=== PATIENT | female | born 1960 | race African-American/Black ===

== ENCOUNTER 2017-06-04 03:20 | Inpatient (IN) | payer MEDICAID ==
[~2017-06-04 03:20] MED LIST: COREG 3.1253.125 MG NG; PROAIR HFA8.5 GM INH
[2017-06-04 03:50] LABS: BASOPHILS 0.2 % (0-2); EOSINOPHILS 1.5 % (0-7); HEMATOCRIT 39.8 % (36.0-48.0); HEMOGLOBIN 13.7 g/dL (12-16); IMMATURE GRANULOCYTES 0.4 % (0-5); LYMPHOCYTES 54.9 % (15-50); MCH 29.4 pg (26.0-34.0); MCHC 34.4 g/dL (31.0-37.0); MCV 85.4 fL (80.0-100.0); MEAN PLATELET VOLUME 10.1 fL (7.4-10.4); MONOCYTES 7.1 % (2-11); NEUTROPHILS 35.9 % (40-80); PLATELET COUNT 186 10x3/uL (130-400); RBC 4.66 10x6/uL (4.00-5.40); RDW 14.2 % (11.5-14.5); WBC 5.5 10x3/uL (4.8-10.8)
[2017-06-04 04:17] LABS: APPEARANCE CLEAR (CLEAR); BILIRUBIN NEGATIVE (NEGATIVE); COLOR YELLOW (YELLOW); GLUCOSE NEGATIVE (NEGATIVE); KETONE NEGATIVE (NEGATIVE); NITRITE NEGATIVE (NEGATIVE); PROTEIN NEGATIVE (NEGATIVE); SPECIFIC GRAVITY 1.005 (1.005-1.020); UROBILINOGEN NORMAL (NORMAL)
[2017-06-04 04:49] LABS: UDS - AMPHET NEGATIVE QUAL (NEGATIVE); UDS - BARB NEGATIVE QUAL (NEGATIVE); UDS - BENZO NEGATIVE QUAL (NEGATIVE); UDS - COCAINE NEGATIVE QUAL (NEGATIVE); UDS - OPIATE NEGATIVE QUAL (NEGATIVE); UDS - PCP NEGATIVE QUAL (NEGATIVE); UDS - THC NEGATIVE QUAL (NEGATIVE)
[2017-06-04 04:52] LABS: ALBUMIN 3.7 g/dL (3.4-5.0); ALKALINE PHOSPHATASE 100 U/L (46-116); ALT (SGPT) 21 U/L (10-68); CALC OSMOLALITY 270 mosm/kg (275-300); CALCIUM 8.9 mg/dL (8.5-10.1); CARBON DIOXIDE 26.1 mmol/L (21.0-32.0); CHLORIDE - SERUM 100 mmol/L (98-107); CREATININE - SERUM 0.7 mg/dL (0.6-1.3); GLUCOSE 88 mg/dL (74-106); POTASSIUM - SERUM 3.3 mmol/L (3.5-5.1); PROTEIN - SERUM 8.2 g/dL (6.4-8.2); SODIUM 137 mmol/L (136-145); UREA NITROGEN 6 mg/dL (7-18); eGFR NON AFRICAN AMERICAN > 90 mL/min (90-120)
[2017-06-04 05:08] LABS: CKMB 0.9 U/L (0.0-3.6); CREATINE KINASE 198 UL (21-215)
[2017-06-04 05:10] LABS: TROPONIN-I 0.092 ng/mL (0.000-0.060)
--- NOTE | 2017-06-04 07:30 | NUR ---
RECEIVED PT TO ROOM 2119 VIA W/C FROM ER DROWSY ORIENTED ANSWERS QUESTION APPROPRIATELY DENIES ANY PAIN OR NEEDS AT THIS TIME
[2017-06-04] MEDS ORDERED: ADVAIR 500/501 DISK INH (07:45)
[2017-06-04] MEDS ORDERED: SINGULAIR10 MG PO (07:45)
[2017-06-04] MEDS ORDERED: NORVASC10 MG PO (07:46)
[2017-06-04] MEDS ORDERED: HYDROCHLOROTHIA25 MG PO (07:46)
[2017-06-04 10:02] LABS: CKMB 0.8 U/L (0.0-3.6); CREATINE KINASE 179 UL (21-215)
[2017-06-04 10:12] LABS: TROPONIN-I 0.076 ng/mL (0.000-0.060)
[2017-06-04 10:42] VITALS: BP 122/85; BMI 25.5
[2017-06-04 12:00] VITALS: BP 98/74
--- NOTE | 2017-06-04 14:17 | NUR ---
RESTING QUIETLY NAD NOTED
[2017-06-04 15:58] VITALS: BP 142/84
[2017-06-04 17:15] LABS: CKMB 0.6 U/L (0.0-3.6); CREATINE KINASE 148 UL (21-215)
[2017-06-04 17:19] LABS: TROPONIN-I 0.069 ng/mL (0.000-0.060)
--- NOTE | 2017-06-04 19:00 | NUR ---
RECEIVED REPORT AND ASSUMED PT CARE FROM DAY SHIFT NURSE @ THIS TIME.
--- NOTE | 2017-06-04 19:51 | NUR ---
IV TO LEFT WRIST SWOLLEN AND PT C/O PAIN TO SITE. DISCONTINUED AT THIS TIME WITH CATH TIP INTACT. RESITED TO RIGHT FOREARM WITH 22 GA ANGIOCATH X 1 STICK. DRESSING PER POLICY. PT KENROY WELL. WILL CONT TO MONITOR.
[2017-06-04 20:00] VITALS: BP 130/82
[2017-06-04 22:36] LABS: CKMB 0.7 U/L (0.0-3.6); CREATINE KINASE 132 UL (21-215)
[2017-06-04 22:37] LABS: TROPONIN-I 0.073 ng/mL (0.000-0.060)
--- NOTE | 2017-06-04 23:58 | NUR ---
PT RESTING WELL WITHOUT C/O OR DISTRESS NOTED. FEW NEEDS VOICED. CALL LIGHT WITHIN REACH.
[2017-06-05 06:33] VITALS: BP 128/88
[2017-06-05 06:51] LABS: BASOPHILS 0 % (0-2); EOSINOPHILS 0 % (0-7); HEMATOCRIT 36.3 % (36.0-48.0); HEMOGLOBIN 12.2 g/dL (12-16); IMMATURE GRANULOCYTES 0.1 % (0-5); LYMPHOCYTES 10.5 % (15-50); MCH 28.9 pg (26.0-34.0); MCHC 33.6 g/dL (31.0-37.0); MONOCYTES 2.5 % (2-11); NEUTROPHILS 86.9 % (40-80); PLATELET COUNT 193 10x3/uL (130-400); RBC 4.22 10x6/uL (4.00-5.40); RDW 14.5 % (11.5-14.5)
[2017-06-05 06:52] LABS: WBC 7.5 10x3/uL (4.8-10.8)
[2017-06-05 07:13] LABS: ALBUMIN 3.1 g/dL (3.4-5.0); ALKALINE PHOSPHATASE 77 U/L (46-116); ALT (SGPT) 18 U/L (10-68); CALCIUM 8.8 mg/dL (8.5-10.1); CARBON DIOXIDE 24.4 mmol/L (21.0-32.0); CHLORIDE - SERUM 110 mmol/L (98-107); CREATININE - SERUM 0.7 mg/dL (0.6-1.3); GLUCOSE 128 mg/dL (74-106); MAGNESIUM - SERUM 2.3 mg/dL (1.8-2.4); PROTEIN - SERUM 6.3 g/dL (6.4-8.2); SODIUM 143 mmol/L (136-145); eGFR NON AFRICAN AMERICAN > 90 mL/min (90-120)
[2017-06-05 07:14] LABS: CALC OSMOLALITY 285 mosm/kg (275-300); POTASSIUM - SERUM 4.7 mmol/L (3.5-5.1); UREA NITROGEN 11 mg/dL (7-18)
--- NOTE | 2017-06-05 08:07 | NUR ---
RECEIVED PT IN BED AAOX4 RESP UNLABORED PT DENIES ANY NEEDS OR DISCOMFORT NAD NOTED
[2017-06-05 09:09] VITALS: BP 103/73
--- NOTE | 2017-06-05 10:30 | NUR ---
RATIONALE FOR SCD'S EXPLAINED. REFUSED SCD'S
[2017-06-05 12:42] VITALS: BP 127/79
[2017-06-05 16:39] VITALS: BP 129/69
[2017-06-05 19:00] VITALS: BP 125/74
[2017-06-06] VITALS: BP 139/82; BP 173/68
[2017-06-06 05:46] LABS: BASOPHILS 0 % (0-2); EOSINOPHILS 0 % (0-7); HEMATOCRIT 37.7 % (36.0-48.0); HEMOGLOBIN 12.7 g/dL (12-16); IMMATURE GRANULOCYTES 0.2 % (0-5); LYMPHOCYTES 7.1 % (15-50); MCHC 33.7 g/dL (31.0-37.0); MCV 86.1 fL (80.0-100.0); MEAN PLATELET VOLUME 10.2 fL (7.4-10.4); MONOCYTES 2.2 % (2-11); NEUTROPHILS 90.5 % (40-80); PLATELET COUNT 193 10x3/uL (130-400); RBC 4.38 10x6/uL (4.00-5.40); RDW 14.7 % (11.5-14.5)
[2017-06-06 05:48] LABS: WBC 10.6 10x3/uL (4.8-10.8)
[2017-06-06 06:01] LABS: ALKALINE PHOSPHATASE 78 U/L (46-116); ALT (SGPT) 18 U/L (10-68); BILIRUBIN - TOTAL 0.29 mg/dL (0.2-1.3); CALC OSMOLALITY 280 mosm/kg (275-300); CALCIUM 8.3 mg/dL (8.5-10.1); CARBON DIOXIDE 26.3 mmol/L (21.0-32.0); CHLORIDE - SERUM 104 mmol/L (98-107); CREATININE - SERUM 0.7 mg/dL (0.6-1.3); GLUCOSE 125 mg/dL (74-106); MAGNESIUM - SERUM 2.3 mg/dL (1.8-2.4); PROTEIN - SERUM 7.1 g/dL (6.4-8.2); SODIUM 141 mmol/L (136-145); UREA NITROGEN 11 mg/dL (7-18); eGFR NON AFRICAN AMERICAN > 90 mL/min (90-120)
[2017-06-06 08:00] VITALS: BP 115/76
--- NOTE | 2017-06-06 11:14 | NUR ---
TELEMETRY SR. RESP UL ON O2 2L NC. CALL LIGHT IN REACH. WILL MONITOR NEEDS.
[2017-06-06] MEDS ORDERED: PREDNISONE10 MG PO (12:56)
--- NOTE | 2017-06-06 14:25 | NUR ---
IV AND TELEMETRY DCD. DC PLANS GIVEN. UNDETRSTANDING VOICED. ESCOERTED TO CAR BY W/C.
--- NOTE | 2017-06-06 17:31 | NUR ---
Patient Name: MILAGROS OLGUIN Admission Status: ER Accout number: [id number] Admission Date: 06-05-2017 : 1960 Admission Diagnosis: Attending: HIWOT MCBRIDE Current LOS: 1 Anticipated DC Date: 06-06-2017 Planned Disposition: Home Primary Insurance: [place] PRIVATE OPTIONS [place] LATE ENTRY: Discharge Planning Comments: * Is the patient Alert and Oriented? Yes 0 * How many steps to enter\exit or inside your home? 3 w/RAIL 0 * PCP DR. SHEFALI LUCIO [place], [place] 0 * [facility] * Preadmission Environment Home with Family 0 * ADLs Independent 0 * Equipment None 0 * Other Equipment NO MEDICAL EQUIPMENT PROVIDER PREFERENCE 0 * List name and contact numbers for known caregivers / representatives who currently or will assist patient after discharge: KANA WRIGHT, 0 * Community resources currently utilized None 0 * Please name any agencies selected above. NONE 0 * Additional services required to return to the preadmission environment? No 0 * Can the patient safely return to the preadmission environment? Yes 0 * Has this patient been hospitalized within the prior 30 days at any hospital? No 0 CM MET WITH PT IN ROOM TO DISCUSS DISCHARGE PLANNING AND NEEDS. PT REPORTS LIVING AT HOME INDEPENDENTLY WITH A FRIEND AND WILL BE GOING TO HER MOTHER'S HOME IN [place] BEFORE RETURING HOME IN A FEW DAYS. PT HAS NO MEDICAL EQUIPMENT AND NO OUTSIDE SERVICES ASSISTING IN THE HOME. CM DISCUSSED AVAILABILITY OF HOME HEALTH, REHAB SERVICES AND MEDICAL EQUIPMENT. PT DENIES DISCHARGE NEEDS, REPORTS HER FRIEND IS HERE TOPICK HER UP FOR DISCHARGE HOME TODAY. Gas Line Installer: Yasmany Fields
== END 2017-06-06 14:26 | disposition home or self-care (01) | DRG 191 ==
LOC: OBSVTIME → D.ER 03:20 → D.M2 05:53 → D.ER 06:20 → D.M2 06:20 → OBSVTIME 06:20 → D.M2 06:20
PROVIDERS: Family Medicine; ADMIT Family Medicine
DX: J44.1 Chronic obstructive pulmonary disease with (acute) exacerbation (principal); F17.203 Nicotine dependence unspecified, with withdrawal; I10 Essential (primary) hypertension; R79.89 Other specified abnormal findings of blood chemistry; Y90.8 Blood alcohol level of 240 mg/100 ml or more; Z72.89 Other problems related to lifestyle; I08.1 Rheumatic disorders of both mitral and tricuspid valves; D72.829 Elevated white blood cell count, unspecified

== ENCOUNTER 2017-06-14 22:32 | Emergency (ER) | payer MEDICAID ==
[~2017-06-14 22:32] MED LIST changes: +ADVAIR 500/501 DISK INH; +HYDROCHLOROTHIA25 MG PO; +NORVASC10 MG PO; +PREDNISONE10 MG PO; +SINGULAIR10 MG PO
== END 2017-06-15 00:06 | disposition home or self-care (01) ==
LOC: D.ER 22:32
DX: J44.1 Chronic obstructive pulmonary disease with (acute) exacerbation (principal); F41.9 Anxiety disorder, unspecified; I10 Essential (primary) hypertension